=== PATIENT | female | born 1990 | race Caucasian/White ===

== ENCOUNTER → 2020-11-30 08:02 | Outpatient (CLI) | payer OTHER, SELFPAY ==
--- NOTE | 2020-11-30 08:03 | DI.US.S_ITS ---
PROCEDURE: US PELVIC COMPLETE INDICATIONS: POSTCOITAL PAIN TECHNIQUE: Real-time scanning was performed of the pelvic organs, with image documentation. Additional endovaginal scanning was necessary due to incomplete visualization of the adnexal and endometrial structures by transabdominal scanning. COMPARISON: [facility], US, OB COMPLETE 14WKS OR MORE, 05/22/2014, 16:46. FINDINGS: Uterus: Uterus is normal in size at 8.3 x 3.9 x 5.3 cm. The endometrium measures 3-4 mm in combined thickness. Appropriately positioned IUD Ovaries: Right ovary measures5 3.8 x 2.5 x 4.3 cm. Solid-appearing lesions with peripheral vascularity measuring 1.8 x 1.2 x 2.0 cm, and 2.4 x 2.0 x 2.5 cm. These demonstrate isoechoic to hyperechoic echogenicity. Left ovary measures 2.5 x 1.1 x 3.0 cm and is unremarkable. Other: No pathologic free abdominal or pelvic fluid. IMPRESSION: Multiple solid-appearing right ovarian lesions demonstrating peripheral vascularity as detailed above. Differential includes dermoid, endometrioma or hemorrhagic cysts. Cannot exclude other statistically less likely neoplastic etiologies. Recommend follow-up to to assess for resolution in 6-8 weeks. If these persist, further evaluation with gynecological protocol MRI could be performed. Appropriately positioned IUD. Dictated by: Aman Kelley M.D. on 12/03/2020 at 15:41 Approved by: Aman Kelley M.D. on 12/03/2020 at 15:46
== END ==
PROVIDERS: Referring Provider Obstetrics & Gynecology; Visit Provider Obstetrics & Gynecology
DX: Z97.5 Presence of (intrauterine) contraceptive device (principal); N93.0 Postcoital and contact bleeding; N83.8 Other noninflammatory disorders of ovary, fallopian tube and broad ligament
CPT/HCPCS: 76830; 76856

== ENCOUNTER → 2020-12-05 14:36 | Outpatient (CLI) | payer OTHER, SELFPAY ==
[2020-12-05 16:06] LABS: Cancer Antigen 125 < 5.5 U/mL (0-35)
== END ==
PROVIDERS: Referring Provider Obstetrics & Gynecology; Visit Provider Obstetrics & Gynecology
DX: N83.9 Noninflammatory disorder of ovary, fallopian tube and broad ligament, unspecified (principal); R93.89 Abnormal findings on diagnostic imaging of other specified body structures
CPT/HCPCS: 36415; 86304

== ENCOUNTER → 2021-01-21 16:18 | Outpatient (CLI) | payer OTHER, SELFPAY ==
[2021-01-24 10:37] LABS: Inhibin B 24.9 pg/mL (.)
[2021-01-24 12:20] LABS: Inhibin A, Ultrasensitive 80.2 pg/mL (.)
== END ==
PROVIDERS: Referring Provider Obstetrics & Gynecology; Visit Provider Obstetrics & Gynecology
DX: N83.8 Other noninflammatory disorders of ovary, fallopian tube and broad ligament (principal)
CPT/HCPCS: 36415; 83520; 86336

== ENCOUNTER → 2021-02-06 10:40 | Outpatient (CLI) | payer OTHER, SELFPAY ==
[2021-02-06 11:35] LABS: COVID19 -Nasal RAPID Negative (Negative)
== END ==
PROVIDERS: Referring Provider Obstetrics & Gynecology; Visit Provider Obstetrics & Gynecology
DX: Z01.812 Encounter for preprocedural laboratory examination (principal); Z20.822 Contact with and (suspected) exposure to COVID-19
CPT/HCPCS: 87635

== ENCOUNTER 2021-02-07 08:14 | Day surgery (SDC) | payer OTHER, SELFPAY ==
[2021-02-05 08:00] VITALS: BMI 27.6
[2021-02-07] VITALS (7 sets, daily range): BP systolic 110–137; BP diastolic 61–79; PULSE 53–73; RESP 13–21; TEMP 36.3–37.1; O2SAT 98–99; BMI 27.6
--- NOTE | 2021-02-07 | PATH_ITS ---
[facility] Accession Number: [id number] . 01 Material submitted: . ovary - RIGHT OVARIAN MASS . 02 Diagnosis: Right Ovarian Mass, Procedure Not Specified: Fragments of ovarian cortical tissue with a prominent benign corpus luteal cyst and with patchy cystic follicles. Negative for atypia or malignancy. V 02/11/2021 1408 Local . 02 Electronically signed: . Opal Winchester MD, Pathologist NPI- [id number] . 01 Gross description: . The specimen is received in formalin, labeled right ovarian mass and consists of a 2-gram, 2.3 x 2.2 x 1.0 cm portion of ovary. The external surface is potts and smooth with multiple areas of disruption. The intact portion of the external surface is inked blue, and the specimen is serially sectioned to reveal multiple potts smooth-walled serous-filled cysts ranging from 0.2-0.4 cm. No papillary excrescences are identified. The specimen is entirely submitted in cassettes A1-A2. (EA:[id number]) /V 02/08/2021 1529 Local . 02 Pathologist provided ICD-10: N83.291 . 02 CPT . 587357 Performed at: 01 [facility] [address], [place], [place] [id number] MD Jensen Toure MD Phone: [phone] Performed at: 02 [facility] [address] [place], [place] [id number] MD Lyric Greco MD Phone: [phone]
[2021-02-07] MEDS: LACTATED RINGERS 1,000 ML 100 ML IV (08:45)
--- NOTE | 2021-02-07 10:11 | PM.HP.1 ---
History of Present Illness History of Present Illness Date Patient Seen: 02/07/21 Time Patient Seen: 10:11 Chief complaint: LAP REMOVAL R OVARIAN MASS Narrative: Patient is a 30-year-old 1 para 1 with a persistent right ovarian solid mass. Tumor markers negative. Patient History Medical History (Updated 01/28/21 @ 21:40 by Lauren Monroe) Anxiety and depression (~2016) PTSD (post-traumatic stress disorder) Surgical History (Updated 01/28/21 @ 21:40 by Lauren Monroe) Anesthesia History of breast augmentation (~2012) History of tonsillectomy Family & Social History Family History (Updated 01/28/21 @ 21:42 by Lauren Monroe) Mother Mental health problem Sister Mental health problem Grandfather Cancer Social History: household members significant other Tobacco & Substance use: Tobacco type e-cigarettes Smoking Status Current every day smoker alcohol intake current alcohol intake frequency a few times a week Substance Use Type marijuana Meds Home Medications and Allergies Home Medications Medication Instructions Recorded Confirmed Type [KYLEENA] #0 02/25/17 01/21/21 History Allergies Allergy/AdvReac Type Severity Reaction Status Date / Time No Known Drug Allergies Allergy Unverified 01/21/21 15:39 Exam Vital Signs (past 8 hours): - 02/07/21 08:30 Temperature 97.3 F L Pulse Rate 65 Respiratory Rate 16 Blood Pressure 137/78 Pulse Oximetry 99 Oxygen Delivery Method Room Air Narrative Exam Narrative: HEENT: No thyromegaly, no anterior cervical or supraclavicular lymphadenopathy. Lungs:Clear to auscultation bilaterally, no wheezes. Cardiovascular: Regular rate and rhythm, no murmurs, rubs, or gallops. Abdomen: No scars. No hepatosplenomegaly. No masses palpable. External genitalia: Normal Vagina: Normal Cervix: Normal Bimanual exam: 6 Week size uterus. Mobile. Assessment & Plan Assessment & Plan narrative: Assessment: 30-year-old 1 para 1 with a persistent solid right ovarian mass Negative tumor markers Plan: Laparoscopic removal of right ovarian mass The risks, benefits, and alternatives to the procedure were explained to the patient. The risks including bleeding, infection, injury to the bowel, bladder, or ureters. She understands these risks and agrees to proceed. A full par Q was held and consent form was signed. COVID-19 COVID-19 status: Negative Result date/Date tested (Pos, Neg/Pending): 02/06/21 Time Spent With Patient Time with patient: less than 30 minutes Critical Care time: I spent a total of [] minutes of critical care time on this patient's care today; this time is exclusive of procedural time.
--- NOTE | 2021-02-07 10:14 | PM.PREOP ---
Pre-operative Note COVID-19 COVID-19 status: Negative Result date/Date tested (Pos, Neg/Pending): 02/06/21 Interval Note History & Physical reviewed/Exam performed by Physician: Yes Changes to H&P: No H&P completed within 30 days and has changed as indicated here:: 02/07/21
[2021-02-07] MEDS: BUPIVACAINE 0.5% (PF) 30 ML, EPINEPHrine 0.15 MG INJ (10:48)
[2021-02-07] MEDS: CEFAZOLIN 2 GM/20 ML SYRINGE IV (10:53)
--- NOTE | 2021-02-07 10:55 | SUR.OPER ---
Lithotomy on padded OR bed, head on pillow, arms padded with gel pads and tucked at sides. Legs secured in padded yellow fins stirrups.
--- NOTE | 2021-02-07 11:29 | PM.GYNOP.1 ---
Operative Date/Time/Diagnoses Date of procedure: 02/07/21 Time of procedure: 11:29 Pre-op diagnosis: Persistent solid right ovarian mass Post-op diagnosis: same Procedure & Clinicians Procedure: Procedures Operation Date: 02/07/21 09:45 Actual Procedure Side Surgeon p Laparoscopic Removal of Ovarian Mass Right Virginia Juárez MD Indications: Persistent solid right ovarian mass Surgeon: Virginia Juárez Anesthesia Type: General and Local Operative Notes Findings: 6 week size anteverted uterus Normal tubes Normal left ovary Right ovary with 2.5 cm solid ovarian mass Normal liver and gallbladder Normal appendix Closure Type: primary Specimen(s): other (Right ovarian mass) Estimated blood loss (mL): 5 Blood products transfused: none Procedure in detail: After informed consent was obtained, the patient was taken to the operating room where she was placed in the dorsal supine position. After adequate general endotracheal anesthesia was achieved, she was placed in the dorsal lithotomy position, and prepped and draped in the usual sterile fashion. A time-out was performed. Due to the presence of an IUD, no Zumi uterine manipulator was placed. Attention was then turned to the abdomen where 6 cc of 0.5% Marcaine with epinephrine were injected in the umbilical fold. A 5 mm incision was made. The Veress needle was placed into the peritoneal cavity, and its placement confirmed by aspiration and drop test. The abdominal cavity was insufflated with 3.2 L of CO2. The Veress needle was removed, and a 5 mm trocar was placed without difficulty. Two other incisions were made 4 cm lateral to the midline at the level of the umbilicus after 6 cc of 0.5% Marcaine with epinephrine were injected. These were 5 mm incisions. Two 5 mm trocars were placed under direct visualization. The pelvis and abdomen were examined with the findings noted above. The right ovary was grasped at the utero-ovarian ligament. The solid mass could be seen. Using the PlasmaKinetic with settings at 40 w, the solid mass was excised using cautery and cut. The mass was placed into the anterior cul-de-sac. A fourth incision was made just above the pubic symphysis after 6 cc of 0.5% Marcaine with epinephrine were injected. This was an 11 mm incision. An 11 mm trocar was placed under direct visualization. The small endobag was placed through the suprapubic trocar and the right ovarian mass was placed into the bag. The bag was removed through the suprapubic incision after the trocar was removed. The suprapubic incision was closed with 0 Vicryl on the fascia. The pelvis was examined and it was hemostatic. The instruments were removed from the abdomen. The CO2 was allowed to escape. All of the incisions were closed in a subcuticular fashion with 4-0 Monocryl. Steri-Strips and Allevyn dressings were placed. Sponge, lap, and instrument counts were correct x2. The patient tolerated the procedure well, and was taken to PACU in stable condition. Complications: none Post-operative Condition: stable Disposition: PACU Plan for aftercare: Home after recovery
[2021-02-07] MEDS: OXYCODONE/ACETAMINOPHEN 5/325 TABLET 1 TAB PO (12:04)
[2021-02-07] MEDS: ONDANSETRON 4 MG/2 ML INJ IV (12:05)
== END 2021-02-07 12:30 | disposition home or self-care (01) ==
PROVIDERS: Referring Provider Obstetrics & Gynecology; Visit Provider Obstetrics & Gynecology
PROC: (CPT 58662; principal; 2021-02-07 09:45)
DX: N83.11 Corpus luteum cyst of right ovary (principal); F41.9 Anxiety disorder, unspecified; F32.9 Major depressive disorder, single episode, unspecified; F43.10 Post-traumatic stress disorder, unspecified
CPT/HCPCS: 58662; 81025; J0171; J0690; J1100; J1885; J2405; J2704; J3010

== ENCOUNTER → 2023-06-30 13:31 | Outpatient (CLI) | payer OTHER, SELFPAY ==
[2023-06-30 14:22] LABS: COVID-19 CEPHEID 4-PLEX PCR Negative (Negative); Influenza A - CEPHEID Flu A NEGATIVE (NEGATIVE); Influenza B - CEPHEID Flu B NEGATIVE (NEGATIVE); Respiratory Syncytial Virus Negative (Negative)
== END ==
PROVIDERS: PCP Nurse Practitioner; Visit Provider Physician Assistant Surgical
DX: R05.1 Acute cough (principal)
CPT/HCPCS: 0241U

== ENCOUNTER → 2023-06-30 13:45 | Outpatient (CLI) | payer OTHER, SELFPAY ==
--- NOTE | 2023-06-30 13:46 | DI.RAD.S_ITS ---
PROCEDURE: XR CHEST 2V INDICATIONS: Dyspnea, cough TECHNIQUE: 2 views of the chest were acquired. COMPARISON: None. FINDINGS: Surgical changes and devices: None. Lungs and pleura: Right mid and lower lung consolidations. No pleural effusions. Mediastinum: Normal heart size Bones and chest wall: Unremarkable IMPRESSION: Right mid and lower lung consolidations suspicious for infection. Consider future imaging surveillance to assess for resolution. Dictated by: Damon Reilly M.D. on 06/30/2023 at 14:23 Approved by: Damon Reilly M.D. on 06/30/2023 at 14:24
== END ==
PROVIDERS: PCP Nurse Practitioner; Referring Provider Physician Assistant Surgical; Visit Provider Physician Assistant Surgical
DX: R05.1 Acute cough (principal); R06.00 Dyspnea, unspecified
CPT/HCPCS: 0241U; 71046